=== PATIENT | female | born 1990 | race Two or more races ===

== ENCOUNTER 2017-08-31 22:24 | Emergency (ER) | payer MEDICAID, OTHER ==
[~2017-08-31] VITALS: Ht 165.1 cm; Wt 128.0 kg
[~2017-08-31 22:24] MED LIST: INSU100C10 SQ; INSU100V9 SQ; INSU200I SQ; LISI-604 PO; NO HOME MEDS
[2017-08-31 22:32] VITALS: BP 141/91
== END 2017-09-01 01:48 | disposition left against medical advice (07) ==
LOC: ER 22:25
DX: I10 Essential (primary) hypertension (principal); Z53.21 Procedure and treatment not carried out due to patient leaving prior to being seen by health care provider
CPT/HCPCS: 82948

== ENCOUNTER 2018-07-12 03:58 | Emergency (ER) | payer MEDICAID ==
[~2018-07-12] VITALS: Ht 165.1 cm; Wt 131.3 kg
[2018-07-12] MEDS ORDERED: normal saline 1000ML IV soln IVB ONE ×2 (04:05→04:10)
[2018-07-12] MEDS ORDERED: proCHLORperazine 10 MG/2 ml inj IV PRN (04:10)
[2018-07-12] MEDS ORDERED: magnesium 2GM in 50ml NS 50 ML IV ONE (04:15)
[2018-07-12] MEDS: morphine 4 MG/ML inj SYRINge IV PRN ×2 (04:20→04:46)
[2018-07-12 04:33] LABS: CLARITY,URINE SLIGHTLY CLOUDY (Clear); COLOR,URINE YELLOW (Yellow); GLUCOSE, URINE NEGATIVE (Neg); KETONES,URINE NEGATIVE (Neg); LEUKOCYTE ESTERASE ,URINE NEGATIVE (Neg); NITRITES, URINE POSITIVE (Neg); OCCULT BLOOD,URINE LARGE (Neg); PROTEIN,URINE 100 mg/dl (Neg); UROBILINOGEN,URINE 0.2 E.U/dL (0.2-1.0)
[2018-07-12 04:35] LABS: BASOPHILS # (AUTO) 0.1 X10'3 (0-0.2); BASOPHILS % (AUTO) 0.5 % (0-1); EOSINOPHILS # (AUTO) 0.6 X10'3 (0-0.9); EOSINOPHILS % (AUTO) 5.8 % (0-6); HEMATOCRIT 33.2 % (35.0-45.0); HEMOGLOBIN 11.2 g/dl (12.0-16.0); LYMPHOCYTES % (AUTO) 28.9 % (21-51); MEAN CORPUSCULAR HEMOGLOBIN 26.2 PG (27.0-31.0); MEAN CORPUSCULAR HGB CONC 33.7 g/dL (33.0-36.5); MEAN PLATELET VOLUME 7.4 FL (7.4-10.4); MONOCYTES # (AUTO) 0.7 X10'3 (0-0.9); NEUTROPHILS # (AUTO) 6.1 X10'3 (1.8-7.7); NEUTROPHILS % (AUTO) 57.8 % (42-75); PLATELET COUNT 337 X10'3 (140-440); RED BLOOD COUNT 4.26 X10'6 (4.20-5.60); RED CELL DISTRIBUTION WIDTH 15.9 % (11.5-14.5); WHITE BLOOD COUNT 10.5 X10'3 (4.5-11.0)
[2018-07-12 04:35] LABS: UA COLLECTION TYPE CLN CATCH MIDSTREAM
[2018-07-12 04:39] LABS: RBC,URINE TNTC /HPF (0-2); SQUAMOUS EPITHELIAL CELL,UR MODERATE /LPF (FEW)
[2018-07-12 04:40] LABS: BACTERIA,URINE 3+ /HPF (Neg); WBC,URINE 50-100 /HPF (0-4)
[2018-07-12 04:44] LABS: ALBUMIN 2.3 G/DL (3.4-5.0); ANION GAP 7 (8-16); BILIRUBIN,TOTAL 0.2 MG/DL (0.1-1.0); BLOOD UREA NITROGEN 18 MG/DL (7-18); BUN/CREATININE RATIO 22.5 (6.6-38.0); CALCIUM 8.9 MG/DL (8.5-10.1); CHLORIDE 105 MMOL/L (99-107); GLUCOSE 106 MG/DL (70-104); POTASSIUM 3.8 MMOL/L (3.5-5.1); SODIUM 139 MMOL/L (135-145); TOTAL CARBON DIOXIDE 27.4 MMOL/L (24-32); TOTAL PROTEIN 7.1 G/DL (6.4-8.2); eGFR 85 ML/MIN
[2018-07-12 04:45] LABS: ALANINE AMINOTRANSFERASE 22 U/L (12-78); ALBUMIN/GLOBULIN RATIO 0.5 (1.1-1.5); ALKALINE PHOSPHATASE 98 IU/L (46-116); ASPARTATE AMINO TRANSFERASE 17 U/L (10-37)
[2018-07-12] MEDS ORDERED: nitrofuran/nitrofuran macrocrysal 100 MG capsule PO ONE (05:05)
--- NOTE | 2018-07-12 05:29 | NUR ---
Patient is resting comfortably and pain is no longer present. Patient complains of chills and warm blanket is provided.
[2018-07-12 06:02] VITALS: BP 152/99
== END 2018-07-12 06:05 | disposition short-term general hospital (02) ==
LOC: ER 03:58
DX: O14.95 Unspecified pre-eclampsia, complicating the puerperium (principal); O16.5 Unspecified maternal hypertension, complicating the puerperium; Z79.899 Other long term (current) drug therapy
CPT/HCPCS: 36415; 70450; 80053; 81001; 85025; 87077; 87088; 87186; 96365; 96375; 99285; J0780; J2270; J3475; J7030

== ENCOUNTER 2019-12-05 00:48 | Emergency (ER) | payer MEDICAID, OTHER ==
[~2019-12-05] VITALS: Ht 162.6 cm; Wt 111.4 kg
[2019-12-05 02:00] VITALS: BP 137/89
--- NOTE | 2019-12-05 02:09 | NUR ---
pt provided urine sample. up to br with steady gait. reports her sister is waiting for her in the parking lot. pt is polite and cooperative. states she feels like there is a lump in her vigina and "it feels like something is going to fall out". states discomfort when urinating. discharge is similar to when she has a yest infection a few weeks ago.
[2019-12-05 02:33] LABS: CLARITY,URINE SLIGHTLY CLOUDY (Clear); COLOR,URINE YELLOW (Yellow); GLUCOSE, URINE >=1000 mg/dl (Neg); KETONES,URINE NEGATIVE (Neg); LEUKOCYTE ESTERASE ,URINE NEGATIVE (Neg); NITRITES, URINE NEGATIVE (Neg); OCCULT BLOOD,URINE NEGATIVE (Neg); PROTEIN,URINE 30 mg/dl (Neg); URINE HCG NEGATIVE (NEG); UROBILINOGEN,URINE 0.2 E.U/dL (0.2-1.0)
[2019-12-05 02:34] LABS: UA COLLECTION TYPE CLN CATCH MIDSTREAM
--- NOTE | 2019-12-05 02:35 | NUR ---
PT, THIS RECORDER, AND DR SEYMOUR TO PERFORM A PELVIC EXAM . CULTURE TAKEN AND SEN TO LAB
[2019-12-05 02:39] LABS: SQUAMOUS EPITHELIAL CELL,UR MANY /LPF (FEW)
[2019-12-05 02:41] LABS: BACTERIA,URINE 1+ /HPF (Neg); RBC,URINE 0-2 /HPF (0-2)
[2019-12-05] MEDS ORDERED: azithromycin 250mg tablet PO ONE (02:50)
[2019-12-05] MEDS ORDERED: CefTRIAXone 250MG IM Kit w/LIDOcaine IM ONE (02:50)
[2019-12-05] MEDS ORDERED: NITR100C6 PO (02:58)
--- NOTE | 2019-12-05 03:00 | NUR ---
DR. GALLEGO DOING PELVIC EXAM WITH PALLAVI Grewal STANDING BY.
[2019-12-05] MEDS ORDERED: fluconazole 150mg tablet PO ONE ×2 (03:15)
== END 2019-12-05 03:51 | disposition home or self-care (01) ==
LOC: ER 00:48
DX: B37.3 Candidiasis of vulva and vagina (principal); N39.0 Urinary tract infection, site not specified; Z20.2 Contact with and (suspected) exposure to infections with a predominantly sexual mode of transmission; E11.9 Type 2 diabetes mellitus without complications; Z79.4 Long term (current) use of insulin; Z79.899 Other long term (current) drug therapy
CPT/HCPCS: 36415; 81001; 81025; 87210; 87491; 87591; 96372; 99284; J0696; 99283

== ENCOUNTER 2024-09-15 14:12 | Emergency (ER) | payer BC, MEDICAID ==
[~2024-09-15] VITALS: Ht 162.6 cm; Wt 86.7 kg
[~2024-09-15 14:12] MED LIST changes: -LISI-604 PO; +LISI5TAB22 PO; +NITR100C6 PO
--- NOTE | 2024-09-15 14:27 | ELECTROCARDIOGRAPH REPORT ---
[facility] Test Date: 2024-09-15 Test Time: 14:25:49 Pat Name: CHAVA NICE Department: [facility]- Patient ID: [facility]-[id number] Room: Gender: F Corporate Compliance Officer: VINI : 1990 Requested By: YANNICK FOSS Order Number: [id number] Reading MD: Measurements Intervals [place] Rate: 71 P: 22 NE: 147 QRS: 96 QRSD: 81 T: -6 QT: 404 QTc: 439 Interpretive Statements Sinus rhythm Borderline right axis deviation Borderline T abnormalities, inferior leads Please click the below link to view image of tracing.
[2024-09-15 14:49] LABS: BASOPHILS # (AUTO) 0.1 X10'3 (0-0.2); BASOPHILS % (AUTO) 1.1 % (0-1); EOSINOPHILS # (AUTO) 0.3 X10'3 (0-0.9); HEMATOCRIT 41.7 % (35.0-45.0); HEMOGLOBIN 14.4 g/dl (12.0-16.0); LYMPHOCYTES # (AUTO) 3.7 X10'3 (1.1-4.8); LYMPHOCYTES % (AUTO) 33.7 % (21-51); MEAN CORPUSCULAR HEMOGLOBIN 26.6 PG (27.0-31.0); MEAN CORPUSCULAR HGB CONC 34.5 g/dL (33.0-36.5); MEAN CORPUSCULAR VOLUME 77.1 FL (78-98); MEAN PLATELET VOLUME 7.3 FL (7.4-10.4); MONOCYTES # (AUTO) 0.6 X10'3 (0-0.9); MONOCYTES % (AUTO) 5.2 % (2-12); NEUTROPHILS # (AUTO) 6.4 X10'3 (1.8-7.7); PLATELET COUNT 466 X10'3 (140-440); RED BLOOD COUNT 5.41 X10'6 (4.20-5.60); WHITE BLOOD COUNT 11.1 X10'3 (4.5-11.0)
--- NOTE | 2024-09-15 14:53 | RADIOLOGY REPORT ---
CHEST RADIOGRAPH Indication: CP Technique: Single frontal view of the chest was obtained Comparison: None FINDINGS: Lines and Tubes: None Lungs: No focal consolidation. Pleura: No effusion. No pneumothorax. Cardiomediastinal contours: Unremarkable Bones: No acute osseous abnormality. IMPRESSION: No acute cardiopulmonary disease.
[2024-09-15 14:58] LABS: ALANINE AMINOTRANSFERASE 25 U/L (12-78); ALBUMIN 3.1 G/DL (3.4-5.0); ALBUMIN/GLOBULIN RATIO 0.6 (1.1-1.5); ALKALINE PHOSPHATASE 136 IU/L (46-116); ANION GAP 10 (8-16); ASPARTATE AMINO TRANSFERASE 10 U/L (10-37); BILIRUBIN,TOTAL 0.3 MG/DL (0.1-1.0); BLOOD UREA NITROGEN 16 MG/DL (7-18); BUN/CREATININE RATIO 18.2 (10.0-20.0); CHLORIDE 94 MMOL/L (99-107); CREATININE 0.88 MG/DL (0.40-0.90); GLUCOSE 255 MG/DL (70-104); SODIUM 129 MMOL/L (135-145); TOTAL PROTEIN 8.5 G/DL (6.4-8.2); eCRCL 77 ML/MIN; eGFR 73 ML/MIN
[2024-09-15 15:06] LABS: PRO BRAIN NATRIURETIC PEPTIDE 33 PG/ML (0-125)
[2024-09-15 15:10] LABS: POTASSIUM 3.8 MMOL/L (3.5-5.1)
--- NOTE | 2024-09-15 16:02 | Physician Documentation ---
History of Present Illness ~ Chief Complaint: Weakness Stated Complaint: BACK PAIN Time Seen by MD: 15:44 OK to notify your PCP?: Yes Primary Medical Doctor: Aryan julien Source: patient, family Mode of Arrival: Ambulatory HPI Patient is seen today with complaints of headache and flank pain bilaterally worse on the right side that started a few days ago. Patient states she was seen at [facility] for vulvovaginal yeast infection on just a few days ago at which time she states she was treated for yeast infection with one antifungal tablet. Patient states she also had developed some dysuria around that same time but denies any urinary urgency or frequency. Patient states she has had urinary tract infections in the past. Patient states the dysuria has worsened over the last few days. Patient states she does have some body aches and feels feverish and complains of a headache. Patient states she just does not feel well. She has no other concern or complaint at this time. Medication Reconciliation Allergies: Coded Allergies: No Known Allergies (Unverified , 12/05/19) Scheduled Insulin Glargine,Hum.rec.anlog (Lantus), 15 UNIT SQ HS Insulin Lispro (Humalog Kwikpen), 5 UNIT SQ AC Insulin Lispro (Humalog), 0 SQ AC Lisinopril (Lisinopril), 5 MG PO DAILY Nitrofurantoin Monohyd/M-Cryst (Macrobid 100 mg Capsule), 1 CAP PO Q12H Tinidazole (Tinidazole), 4 TAB PO ONCE Miscellaneous Medications Home Med List (No Home Medications), (Reported) Past Medical History Past Medical History: Diabetes Past Surgical History: no surgical history Last Menstrual Period: September 08, 2024 Alcohol Use: None Drug Use: none Lives In: Home Occupation: employed Review of Systems Constitutional: Denies: chills, fever, weakness Eyes: Denies: pain, blurred vision ENT: Denies: ear pain, nose pain, throat pain, mouth pain Respiratory: Denies: cough, shortness of breath Cardiovascular: Denies: chest pain, palpitations Gastrointestinal: Denies: abdominal pain, nausea, vomiting Genitourinary: Denies: burning, dysuria Female Genitalia: Denies: vaginal discharge, pelvic pain Neurological: Denies: headache, dizziness Musculoskeletal: Denies: pain, swelling Integumentary: Denies: rash, lesions Allergic/Immunologic: Denies: hives, itching Hematologic/Lymphatic: Denies: no symptoms reported Psychiatric: Denies: depression, anxiety Physical Exam Vital Signs: Temperature: 97.9, Source: Temporal, Heart Rate: 79, Respiratory Rate: 15, BP: 151/100, Pulse Oximetry: 97, Weight: 86.700 Physical Exam General: Awake and Alert, no acute distress. HEENT: Conjunctiva pink, Sclera clear, Mucus Membranes moist. Neck: Supple without masses and tenderness. Resp: Unlabored. Lungs clear to auscultation bilaterally. Heart: Regular Rate and rhythm, normal S1 and S2 without murmur, rub or gallop. Musculoskeletal: Patient on exam does have decreased range of motion of the lumbar spine in all planes of motion with tenderness to palpation of the paraspinal muscles without tenderness to palpation of the spinous processes. Abdomen: Patient on exam does have CVA tenderness bilaterally worse on the right side. Patient does have rebound tenderness as well as tenderness in the right lower quadrant, patient has mild tenderness to palpation in the left upper quadrant. Abdomen is soft and nondistended. No masses. Extremities: No cyanosis,clubbing or edema. Skin: Warm and Dry. Progress Results/Orders Results/Orders Orders - KALEB ANDINO PAC Ct Abdomen Pelvis (09/15/24 16:36) Chlam/Gc Amp Ur (09/15/24 18:33) Baclofen Tablet (Lioresal Tablet) (09/15/24 18:52) Completed Orders - KALEB ANDINO PAC Normal Saline 1000ml (Sodium Chloride 10 (09/15/24 15:50) Normal Saline 1000ml (Sodium Chloride 10 (09/15/24 15:50) Ketorolac Trometh 30mg/Ml Vial (Toradol (09/15/24 15:50) Acetaminophen 1,000mg/100ml Iv (Ofirmev (09/15/24 15:50) Ua W/Microscopic, Cult If Ind (09/15/24 15:05) Ct Abdomen Pelvis (09/15/24 16:36) Hcg, Ur Ql (09/15/24 15:05) Iohexol 300mg/Ml 100ml Inj. (Omnipaque-3 (09/15/24 17:46) Medications Received in ER Medications (Trade) Dose Ordered Sig/Javier Route PRN Reason Start Time Stop Time Status Last Admin Dose Admin Sodium Chloride 1,000 ml @ 1,000 mls/hr ONCE STAT IV 09/15/24 15:50 09/15/24 16:49 DC 09/15/24 16:16 1,000 MLS/HR Sodium Chloride 1,000 ml @ 1,000 mls/hr ONCE STAT IV 09/15/24 15:50 09/15/24 16:49 DC 09/15/24 16:17 1,000 MLS/HR (Toradol inj. 30mg/ml) 30 mg ONCE STAT IV 09/15/24 15:50 09/15/24 15:56 DC 09/15/24 16:17 30 MG Acetaminophen 100 ml @ 400 mls/hr ONCE STAT IV 09/15/24 15:50 09/15/24 16:04 DC 09/15/24 16:17 400 MLS/HR Vital Signs 09/15/24 09/15/24 09/15/24 09/15/24 14:17 16:17 16:20 16:50 Temp 97.9 Pulse 79 72 Resp 15 16 14 16 B/P (MAP) 151/100 152/97 (115) Pulse Ox 97 95 Laboratory Tests Test 09/15/24 14:32 09/15/24 15:05 09/15/24 16:33 White Blood Count 11.1 H Red Blood Count 5.41 Hemoglobin 14.4 Hematocrit 41.7 Mean Corpuscular Volume 77.1 L Mean Corpuscular Hemoglobin 26.6 L Mean Corpuscular Hemoglobin Concent 34.5 Red Cell Distribution Width 14.0 Platelet Count 466 H Mean Platelet Volume 7.3 L Neutrophils (%) (Auto) 57.0 Lymphocytes (%) (Auto) 33.7 Monocytes (%) (Auto) 5.2 Eosinophils (%) (Auto) 3.0 Basophils (%) (Auto) 1.1 H Neutrophils # (Auto) 6.4 Lymphocytes # (Auto) 3.7 Monocytes # (Auto) 0.6 Eosinophils # (Auto) 0.3 Basophils # (Auto) 0.1 CBC Comment Sodium Level 129 L Potassium Level 3.8 Chloride Level 94 L Carbon Dioxide Level 25.0 Anion Gap 10 Blood Urea Nitrogen 16 Creatinine 0.88 Estimated GFR/1.73 m2 73 BUN/Creatinine Ratio 18.2 Glucose Level 255 H Calcium Level 9.0 Total Bilirubin 0.3 Aspartate Amino Transf (AST/SGOT) 10 Alanine Aminotransferase (ALT/SGPT) 25 Alkaline Phosphatase 136 H Troponin I High Sensitivity 4 5 Pro-B-Type Natriuretic Peptide 33 Total Protein 8.5 H Albumin 3.1 L Globulin 5.4 H Albumin/Globulin Ratio 0.6 L Chemistry Comments Urine Specimen Description Cln catch midstream Urine Color Yellow Urine Clarity Slightly cloudy Urine pH 6.0 Urine Specific [place] >=1.030 Urine Protein >=300 H Urine Glucose (UA) 500 H Urine Ketones Trace H Urine Occult Blood Small Urine Nitrite Negative Urine Bilirubin Negative Urine Urobilinogen 0.2 Urine Leukocyte Esterase Negative Urine RBC 3-10 Urine WBC 0-4 Urine Squamous Epithelial Cells Many Urine Calcium Oxalate Crystals 1+ Urine Bacteria 1+ Urine Hyaline Casts 0-3 Urine Mucus None seen Urine Culture Indicated Not ind Volume Urine Centrifuged 10 ml Urine HCG, Qualitative Negative Urine Comment Troponin I High Sens Percent Delta 25 Troponin I Hi Sens Absolute Change 1 Medical Decision Making Findings Patient is seen today with complaints of headache and flank pain bilaterally worse on the right side that started a few days ago. Patient states she was seen at [facility] for vulvovaginal yeast infection on just a few days ago at which time she states she was treated for yeast infection with one antifungal tablet. Patient states she also had developed some dysuria around that same time but denies any urinary urgency or frequency. Patient states she has had urinary tract infections in the past. Patient states the dysuria has worsened over the last few days. Patient states she does have some body aches and feels feverish and complains of a headache. Patient states she just does not feel well. She has no other concern or complaint at this time. Patient does continue complaining of vaginal discharge and discomfort. Patient was given 2 L of normal saline IV, 30 mg of Toradol IV, 1 g of Tylenol IV without any significant improvement in symptoms. Patient's labs show mild leukocytosis just over 11. Urine showed no sign of infection, she did have sugar and protein in a small amount of blood in the urine but culture was not indicated. Patient did have CT scan with contrast done of abdomen and pelvis that showed no acute abnormalities and no sign of appendicitis and only showed hepatic steatosis. Patient is metabolic panel showed elevated blood sugar but otherwise was largely unremarkable showed no significant liver or kidney abnormalities. Patient's urine was sent for gonorrhea and chlamydia testing on patient will be treated empirically for possible trichomoniasis or bacterial vaginosis. I recommend patient follow up with acute care clinical nurse specialist specialist for further eval and testing. Prescription of Tinidazole 2 g by mouth one time sent to patient's pharmacy. Patient will return to ED with any worsening, concerning or changing symptoms. Patient was also given baclofen muscle relaxer for muscle spasm in her lower back. 10 mg baclofen one tab two to 3 times a day as needed for muscle spasm. I did discuss plan with Dr. Mark who is in agreement to the plan. Dr. Mark was consulted and did see the patient with me at bedside. Departure Disposition: HOME / SELF CARE / HOMELESS Impression: Primary Impression: Vaginal discharge Condition: Stable Discharge Instructions: Bacterial Vaginosis, [id number] Additional Instructions: Patient was given 2 L of normal saline IV, 30 mg of Toradol IV, 1 g of Tylenol IV without any significant improvement in symptoms. Patient's labs show mild leukocytosis just over 11. Urine showed no sign of infection, she did have sugar and protein in a small amount of blood in the urine but culture was not indicated. Patient did have CT scan with contrast done of abdomen and pelvis that showed no acute abnormalities and no sign of appendicitis and only showed hepatic steatosis. Patient is metabolic panel showed elevated blood sugar but otherwise was largely unremarkable showed no significant liver or kidney abnormalities. Patient's urine was sent for gonorrhea and chlamydia testing on patient will be treated empirically for possible trichomoniasis or bacterial vaginosis. I recommend patient follow up with acute care clinical nurse specialist specialist for further eval and testing. Prescription of Tinidazole 2 g by mouth one time sent to patient's pharmacy. Patient will return to ED with any worsening, concerning or changing symptoms. Patient was also given baclofen muscle relaxer for muscle spasm in her lower back. 10 mg baclofen one tab two to 3 times a day as needed for muscle spasm. Referrals: NO PRIMARY CARE PROVIDER (PCP) Prescriptions Baclofen (Baclofen) 10 Mg Tablet 1 TAB PO Q8H for 30 Days, #90 TAB 0 Refills Prov: KALEB ANDINO 09/15/24 Tinidazole (Tinidazole) 500 Mg Tablet 4 TAB PO ONCE for 1 Day, #4 TAB 0 Refills Prov: KALEB ANDINO 09/15/24 Signature Scribe Signature: No scribe Attestation: No scribe KALEB ANDINO PAC September 15, 2024 16:02
[2024-09-15] MEDS: normal saline 1000ml 1,000 ML IV STA ×2 (16:16→16:17)
[2024-09-15] MEDS: acetaminophen 1,000mg/100ml IV 100 ML IV STA (16:17)
[2024-09-15] MEDS: ketorolac trometh 30MG/ML vial 30 MG/ML VIAL IV STA (16:17)
[2024-09-15 16:21] LABS: BILIRUBIN,URINE NEGATIVE (Neg); CLARITY,URINE SLIGHTLY CLOUDY (Clear); COLOR,URINE YELLOW (Yellow); GLUCOSE, URINE 500 mg/dl (Neg); KETONES,URINE TRACE mg/dl (Neg); LEUKOCYTE ESTERASE ,URINE NEGATIVE (Neg); NITRITES, URINE NEGATIVE (Neg); OCCULT BLOOD,URINE SMALL (Neg); PROTEIN,URINE >=300 mg/dl (Neg); UROBILINOGEN,URINE 0.2 E.U/dL (0.2-1.0)
[2024-09-15 16:26] LABS: UA COLLECTION TYPE CLN CATCH MIDSTREAM
[2024-09-15 16:36] LABS: BACTERIA,URINE 1+ /HPF (Neg); CAL OXALATE CRYSTALS 1+ /HPF (NEGATIVE); HYALINE CASTS 0-3 /LPF (NEGATIVE); MUCUS STRANDS NONE SEEN /LPF (Neg); SQUAMOUS EPITHELIAL CELL,UR MANY /LPF (FEW); WBC,URINE 0-4 /HPF (0-4)
[2024-09-15 17:43] LABS: URINE HCG NEGATIVE (NEG)
[2024-09-15] MEDS ORDERED: iohexol 300mg/ml 100ml inj. ONE (17:46)
--- NOTE | 2024-09-15 18:18 | RADIOLOGY REPORT ---
Exam: CT CT ABDOMEN PELVIS W/ IV CONTRAST History: RLQ abd pain COMPARISON: None Technique: Multidetector spiral CT of the abdomen and pelvis was performed from lung bases to pubic s ymphysis. Intravenous contrast was administered during this examination. Portal venous imaging was obtained. Axial, coronal and sagittal multiplanar reformats were performed by the technologist on a separate workstation. Radiation Dose : 1. Abdomen/Pelvis: CTDIvol 35 mGy, DLP 2003 mGy*cm. CONTRAST: Type of contrast: Isovue Contrast injected: 100 ml Findings: Lung Bases: No acute or significant lung base finding. Normal heart size. No pleural or pericardial effusion. Liver: The liver is normal in size. No focal lesions. Normal hepatic vascular enhancement. Diffuse s teatosis. Gallbladder and Biliary Tree: Unremarkable Spleen: Unremarkable Pancreas: The pancreas is normal in appearance without focal lesions or abnormal enhancement. Adrenal Glands: Unremarkable Kidneys: No hydronephrosis. Bladder: Unremarkable Bowel: The stomach is grossly normal in appearance. Small bowel and colon are normal in caliber and d istribution. Normal appendix is visualized in the right lower quadrant without findings of appendici tis. Ascites: Absent Lymphadenopathy: No mesenteric, retroperitoneal or periportal lymphadenopathy. Abdominal Wall and Mesentery: Unremarkable. Vasculature: The visualized abdominal aorta is normal in size and caliber. Abdominal and pelvic vess els demonstrate normal enhancement. Pelvic Organs: Unremarkable Musculoskeletal: No aggressive focal bony lesions, acute fractures or dislocation. IMPRESSION: 1. No acute abdominal or pelvic finding. Normal appendix. 2. Hepatic steatosis Radiation optimization: All CT scans at this facility use at least one of these dose optimization heather hniques: automated exposure control mA and/or kV adjustment per patient size (includes targeted exam s where dose is matched to clinical indication) or iterative reconstruction.
[2024-09-15] MEDS ORDERED: TINI500T18 PO (18:46)
[2024-09-15] MEDS ORDERED: BACL10TA2 PO (18:55)
[2024-09-15] MEDS: baclofen 10mg tablet PO STA (19:20)
[2024-09-15 19:21] VITALS: BP 153/97; PULSE 82; RESP 16; TEMP 97.9; O2SAT 99
== END 2024-09-15 19:28 | disposition home or self-care (01) ==
LOC: ER 14:12
DX: N89.8 Other specified noninflammatory disorders of vagina (principal); I16.1 Hypertensive emergency; E11.9 Type 2 diabetes mellitus without complications; Z79.4 Long term (current) use of insulin; Z79.899 Other long term (current) drug therapy
CPT/HCPCS: 36415; 71045; 74177; 80053; 81001; 81025; 83880; 84484; 85025; 87491; 87591; 93005; 96365; 96375; 99285; J0131; J1885; J7030; Q9967